=== PATIENT | female | born 1980 | race Caucasian/White ===

== ENCOUNTER 2017-09-19 12:54 | Outpatient (CLI) | payer OTHER ==
[2017-09-19 16:44] LABS: ADD MAN DIFF? NO
[2017-09-19 16:46] LABS: BASOPHILS % 0.3 % (0.0-2.0); EOSINOPHILS % 0.2 % (0.0-7.0); HEMATOCRIT 39.4 % (37.0-47.0); HEMOGLOBIN 13.6 g/dl (12.0-16.0); LYMPHOCYTES # 1.4 10^3/ul (0.8-2.9); LYMPHOCYTES % 14.5 % (15.0-51.0); MEAN CORPUSCULAR HEMOGLOBIN 31.4 pg (29.0-33.0); MEAN CORPUSCULAR HGB CONC 34.5 g/dl (32.0-37.0); MEAN PLATELET VOLUME 9.1 fl (7.4-10.4); MONOCYTE # 0.7 10^3/ul (0.3-0.9); MONOCYTES % 7.2 % (0.0-11.0); NEUTROPHIL # 7.6 10^3/ul (1.6-7.5); NEUTROPHILS % 77.5 % (39.0-77.0); PLATELET COUNT 387 10^3/UL (140-415); RED BLOOD COUNT 4.33 10^6/ul (4.20-5.40); RED CELL DISTRIBUTION WIDTH 12.2 % (11.5-14.5)
[2017-09-19 16:46] LABS: WHITE BLOOD COUNT 9.9 10^3/ul (4.8-10.8)
[2017-09-19 17:00] LABS: PROTIME 13.3 Sec (11.9-14.9)
[2017-09-19 17:03] LABS: ALANINE AMINOTRANSFERASE 54 IU/L (13-69); ALBUMIN 4.5 g/dl (3.3-4.9); ALKALINE PHOSPHATASE 91 IU/L (42-121); AMYLASE 44 U/L (11-123); ANION GAP 16 (8-16); ASPARTATE AMINO TRANSFERASE 25 IU/L (15-46); BILIRUBIN,INDIRECT 0.7 mg/dl (0-1.1); BILIRUBIN,TOTAL 0.7 mg/dl (0.2-1.3); BLOOD UREA NITROGEN 7 mg/dl (7-20); CALCIUM 9.7 mg/dl (8.4-10.2); CARBON DIOXIDE 27 mmol/L (21-31); CHLORIDE 101 mmol/L (97-110); CREATININE 0.45 mg/dl (0.44-1.00); GLUCOSE 123 mg/dl (70-220); LIPASE 99 U/L (23-300); MAGNESIUM 1.7 mg/dl (1.7-2.5); PHOSPHORUS 3.5 mg/dl (2.5-4.9); POTASSIUM 3.9 mmol/L (3.5-5.1); SODIUM 140 mmol/L (135-144); TOTAL PROTEIN 8.3 g/dl (6.1-8.1)
[2017-09-19 17:19] LABS: LACTIC ACID 1.3 mmol/L (0.5-2.0)
== END 2017-09-19 17:00 | disposition home or self-care (01) ==
LOC: HPC 12:54
DX: K85.10 Biliary acute pancreatitis without necrosis or infection (principal)
CPT/HCPCS: 76705; 80048; 80076; 82150; 83605; 83690; 83735; 84100; 85025; 85610

== ENCOUNTER 2017-09-28 05:55 | Day surgery (SDC) | payer OTHER ==
[2017-09-28] MEDS ORDERED: CEFAZOLIN 2 GM/50 ML (PMX) 50 ML IVPB (06:30)
[2017-09-28] MEDS ORDERED: D5W-0.45 NACL + KCL 20 MEQ 1,000 ML IV (06:30)
[2017-09-28] MEDS ORDERED: CEFAZOLIN 1 GM INJ (07:00)
[2017-09-28] MEDS ORDERED: BUPIVACAINE 0.25%/EPI (MDV) 50 ML VIAL INJ (07:00)
[2017-09-28] MEDS ORDERED: FENTAnyl 50 MCG/ML VIAL (07:09)
[2017-09-28] MEDS ORDERED: MIDAZOLAM 1 MG/ML 2 ML INJ (07:10)
[2017-09-28] MEDS ORDERED: SUCCINYLCHOLINE CHLORIDE 100 MG/5 ML SYG IV (07:11)
[2017-09-28] MEDS ORDERED: LIDOCAINE 100 MG SYRINGE (07:11)
[2017-09-28] MEDS ORDERED: PROPOFOL 20 ML (07:11)
[2017-09-28] MEDS ORDERED: ROCURONIUM 50 MG INJ (07:11)
[2017-09-28] MEDS ORDERED: ONDANSETRON 4 MG INJ (07:12)
[2017-09-28] MEDS ORDERED: DEXAMETHASONE 4 MG/ML 1 ML INJ (07:13)
[2017-09-28] MEDS ORDERED: BACITRACIN 0.9 GM OINT (08:21)
[2017-09-28] MEDS ORDERED: PHENYLephrine (100 MCG/ML) 5ML SYG (08:33)
[2017-09-28] MEDS: BUPIVACAINE 0.25%/EPI (SDV) 30 ML INJ INJ (08:46)
[2017-09-28] MEDS ORDERED: HYDROmorphONE 2 MG/ML SYG (08:57)
[2017-09-28] MEDS ORDERED: EPHEDrine SULFATE 50 MG/5 ML SYG IV (11:00)
[2017-09-28] MEDS ORDERED: ALBUMIN HUMAN 5% 250 ML IV (11:00)
[2017-09-28] MEDS ORDERED: HYDROCODONE/APAP (5/325) TAB PO (11:00)
[2017-09-28] MEDS ORDERED: MEPERIDINE 25 MG INJ IV (11:00)
[2017-09-28] MEDS ORDERED: BISACODYL 10 MG SUPP PR (11:00)
[2017-09-28] MEDS ORDERED: DOCUSATE SODIUM 100 MG CAP PO (11:00)
[2017-09-28] MEDS ORDERED: HYDROmorphONE (0.2 MG/ML) 10ML SYG IV ×2 (11:00)
[2017-09-28] MEDS ORDERED: FENTAnyl 50 MCG/ML VIAL IV ×2 (11:00)
[2017-09-28] MEDS ORDERED: DIPHENHYDRAMINE 50 MG INJ IV (11:00)
[2017-09-28] MEDS ORDERED: ONDANSETRON 4 MG INJ IV (11:00)
[2017-09-28] MEDS: KETOROLAC 30 MG INJ IV (11:36)
[2017-09-28] MEDS: HYDROCODONE/APAP (5/325) TAB PO (11:36)
[2017-09-28] MEDS: METOCLOPRAMIDE 10 MG INJ IV (11:36)
[2017-09-30] MEDS ORDERED: BISACODYL 10 MG SUPP PR (11:00)
== END 2017-09-28 13:00 | disposition home or self-care (01) ==
LOC: SDS 05:55
DX: K80.10 Calculus of gallbladder with chronic cholecystitis without obstruction (principal)
CPT/HCPCS: 47562; 84703; 88304

== ENCOUNTER 2017-10-17 10:09 | Outpatient (CLI) | payer OTHER | END 2017-10-17 15:52 | disposition home or self-care (01) | LOC: HPC 10:09 | DX: K80.10 Calculus of gallbladder with chronic cholecystitis without obstruction (principal) | CPT/HCPCS: Z7500 ==

== ENCOUNTER 2018-01-24 07:22 | Day surgery (SDC) | payer OTHER ==
[2018-01-24] MEDS ORDERED: IOHEXOL 300MG/ML 30 ML BTL (08:55)
[2018-01-24] MEDS ORDERED: CIPROFLOXACIN 400MG/D5W 200 ML IVPB (09:00)
[2018-01-24] MEDS ORDERED: INDOMETHACIN 50 MG SUPP PR ×2 (09:00)
[2018-01-24] MEDS ORDERED: FENTAnyl 50 MCG/ML VIAL (09:16)
[2018-01-24] MEDS ORDERED: MIDAZOLAM 1 MG/ML 2 ML INJ (09:16)
[2018-01-24] MEDS ORDERED: PROPOFOL 20 ML (09:28)
[2018-01-24] MEDS ORDERED: SUCCINYLCHOLINE CHLORIDE 100 MG/5 ML SYG IV (09:28)
[2018-01-24] MEDS ORDERED: DEXAMETHASONE 4 MG/ML 1 ML INJ (09:28)
[2018-01-24] MEDS ORDERED: LIDOCAINE 2% (SDV) 5 ML INJ (09:28)
[2018-01-24] MEDS ORDERED: ONDANSETRON 4 MG INJ (09:28)
[2018-01-24] MEDS ORDERED: CIPROFLOXACIN 400MG/D5W 200 ML (09:32)
[2018-01-24] MEDS ORDERED: FENTAnyl 50 MCG/ML VIAL IV ×3 (10:30)
[2018-01-24] MEDS ORDERED: PROCHLORPERAZINE 10 MG INJ IV (10:30)
[2018-01-24] MEDS ORDERED: MEPERIDINE 25 MG INJ IV (10:30)
[2018-01-24] MEDS ORDERED: HYDROmorphONE 1 MG/5 ML IV SYRINGE IV ×3 (10:30)
[2018-01-24] MEDS ORDERED: ONDANSETRON 4 MG INJ IV (10:30)
[2018-01-24] MEDS ORDERED: OXYCODONE/ACETAMINOPHEN (5/325) TAB PO (10:30)
[2018-01-24] MEDS ORDERED: DIPHENHYDRAMINE 50 MG INJ IV (10:30)
== END 2018-01-24 11:57 | disposition home or self-care (01) ==
LOC: GIL 07:22 → SDS 07:22 → GIL 11:57
DX: K80.50 Calculus of bile duct without cholangitis or cholecystitis without obstruction (principal)
CPT/HCPCS: 43264; 74330; 84703